=== PATIENT | male | born 1985 | race Caucasian/White ===

== ENCOUNTER 2025-06-27 15:49 | Emergency (ER) | payer BC, SELFPAY ==
[2025-06-27 16:08] VITALS: BP 118/81; PULSE 90; RESP 16; TEMP 36.4; O2SAT 98; BMI 25.8
--- NOTE | 2025-06-27 16:18 | CRLHL7_ITS ---
For Patients: As a result of the Century Cures Act, medical imaging exams and procedure reports are released immediately into your electronic medical record. You may view this report before your referring provider. If you have questions, please contact your health care provider. Indication: EPIGASTRIC PAIN Technique: CT abdomen/pelvis with IV contrast utilizing 89 mL Isovue 370 Comparison: None Findings: Lower thorax: Trace dependent and basilar atelectasis. Abdomen/pelvis: The liver, gallbladder and biliary system, spleen, adrenal glands, kidneys, ureters, bladder, seminal vesicles, and imaged external genitalia are unremarkable. Faint fat stranding of the pancreatic head/uncinate process, likely secondary to inflammatory changes of the 2nd portion of the duodenum where there is some abnormal mural thickening with questionable duodenal ulcer (series number 2, image [id number]). No bowel obstruction. The appendix is not discretely visualized; however, there are no inflammatory changes in the right lower quadrant to suggest acute appendicitis. There is no free air, free fluid, or abscess. No abdominopelvic lymphadenopathy. The vasculature is unremarkable. Soft tissue/musculoskeletal: Small fat containing umbilical hernia. The bones are unremarkable. Impression: 1. Inflammatory changes of the 2nd portion of the duodenum where there is some abnormal mural thickening with questionable duodenal ulcer. Consider further assessment with endoscopy. 2. There is no free air, free fluid, or abscess. 3. Faint fat stranding of the pancreatic head/uncinate process, likely secondary to inflammatory changes of the duodenum, and less likely acute pancreatitis; however, recommend correlation with serum lipase values. 4. Additional incidental findings as detailed above. Please note that all CT scans at this facility use dose modulation, iterative reconstruction, and/or weight-based dosing when appropriate to reduce radiation dose to as low as reasonably achievable. Dictated by Chucky Barry MD @ 06/27/2025 5:47:14 PM (Electronically Signed)
[2025-06-27 16:43] LABS: Lactate* 0.7 mmol/L (0.5-1.9)
--- NOTE | 2025-06-27 16:47 | ED.GENADULT ---
HPI - General Adult General Chief complaint: Abdominal Pain Stated complaint: stomach pain Time Seen by Provider: 06/27/25 16:04 Source: patient Mode of arrival: ambulatory Limitations: no limitations History of Present Illness HPI narrative: 39-year-old male presents today with diffuse abdominal pain that has been present for 3 days. Eating makes it worse. He denies any diarrhea or constipation. He denies any urinary symptoms such as increased frequency, urgency or dysuria. He denies fevers or chills. He does have mild nausea, no vomiting. Nothing makes it better. Past medical history is benign, he takes no medications. He denies any past surgeries. Patient does drink alcohol 3-4 times per week. Related Data Home Medications ?Medication ?Instructions ?Recorded ?Confirmed No Known Home Medications 06/27/25 06/27/25 Allergies Allergy/AdvReac Type Severity Reaction Status Date / Time No Known Drug Allergies Allergy Verified 06/27/25 17:09 Review of Systems Status of ROS: Reports: 10 or more systems reviewed and unremarkable except as noted in History and below Exam Narrative: Exam Narrative: Well-nourished well-developed patient in no acute distress. Alert and oriented. Answers questions appropriately. Mood and affect are appropriate. Thoughts are goal oriented and rational. No tangential or magical thinking noted. Patient speaks in full sentences without needing to catch his breath. HEENT: Normocephalic atraumatic. Pupils are equally round reactive to light. Extraocular muscles are intact. Conjunctivae are moist without any icterus noted. Moist mucous membranes. Posterior pharynx is normal. Cardiovascular: Heart is regular rate and rhythm S1 and S2 are present without any murmurs. Lungs: Clear to auscultation bilaterally no wheezes rhonchi or rales are appreciated. Patient takes deep breaths without any discomfort. Abdomen: Soft and nondistended with normal bowel sounds. Patient does have epigastric tenderness. Negative Garcia sign. No periumbilical tenderness. Extremities: Bilateral lower extremities are without edema. Skin: Well perfused without any obvious rashes. Const: Vital Signs, click to edit/add: Vital Signs - 24 hr 06/27/25 16:08 Temperature 97.6 F Pulse Rate [Pulse Oximeter] 90 Respiratory Rate 16 Blood Pressure [Ri ght Upper Arm] 118/81 Pulse Oximetry 98 Oxygen Delivery Me thod Room Air Course Course ED Course: Differential diagnoses includes gastritis, peptic ulcer disease, pancreatitis, colitis, cholecystitis, cholelithiasis. Patient was in the urgent care earlier today and had some labs done: His CBC does show an elevated white cell count of 14.19 with 78.8% neutrophils. Urinalysis showed trace ketones and trace protein. Chemistries were unremarkable aside from a creatinine that was elevated at 1.4. While in the ED we added a lactate which was normal. Lipase was slightly elevated at 401. LFTs were slightly elevated with an AST of 39 and ALT of 65, normal alkaline phosphatase and bilirubin levels. CT shows a duodenal ulcer. Slight inflammation around the pancreas. Vital Signs Vital signs: Initial Vital Signs Temperature 97.6 F 06/27/25 16:08 Temperature Source Temporal Artery Scan 06/27/25 16:08 Pulse Rate 90 06/27/25 16:08 Respiratory Rate 16 06/27/25 16:08 Blood Pressure 118/81 06/27/25 16:08 Blood Pressure Mean 93 06/27/25 16:08 Blood Pressure Position Sitting 06/27/25 16:08 Pulse Oximetry 98 06/27/25 16:08 Oxygen Delivery Method Room Air 06/27/25 16:08 Vital Signs Temperature 97.6 F 06/27/25 16:08 Pulse Rate 90 06/27/25 16:08 Respiratory Rate 16 06/27/25 16:08 Blood Pressure 118/81 06/27/25 16:08 Pulse Oximetry 98 06/27/25 16:08 Oxygen Delivery Method Room Air 06/27/25 16:08 Temperature 97.6 F 06/27/25 16:08 Pulse Rate 90 06/27/25 16:08 Respiratory Rate 16 06/27/25 16:08 Blood Pressure 118/81 06/27/25 16:08 Pulse Oximetry 98 06/27/25 16:08 Oxygen Delivery Method Room Air 06/27/25 16:08 Medications Administered Medications: Discontinued Medications Generic Name Dose Route Start Last Admin Trade Name Freq PRN Reason Stop Dose Admin Sodium Chloride 1,000 mls @ 1,000 mls/hr 06/27/25 16:30 06/27/25 17:35 0.9 % Sodium Chloride 1000 Ml IV 06/27/25 17:29 Infused .Q1H IRMA Infusion Medical Decision Making MDM Narrative Medical decision making narrative: 39-year-old male with signs and symptoms consistent with a duodenal ulceration. Will treat with omeprazole, discussed things to avoid, discussed warning signs to return to the ED. Discussed following up with primary care to test for H pylori and the need for an EGD. Lab Data Lab results reviewed: Yes I reviewed the patient's lab results Labs: Lab Results 06/27/25 Range/Units 16:37 Lactate 0.7 (0.5-1.9) mmol/L Total Bilirubin 1.0 (0.1-1.5) mg/dL Direct Bilirubin 0.3 (0.0-0.5) mg/dL AST 39 H (12-35) U/L ALT 65 H (4-50) U/L Alkaline Phosphatase 121 (40-150) U/L Total Protein 8.4 H (6.0-8.3) g/dL Albumin 4.8 (3.3-5.0) g/dL Lipase 401 H (23-300) U/L Imaging Data CT scan - abdomen: Attestation: I have reviewed the pertinent imaging results. Radiologist's impression: Technique: CT abdomen/pelvis with IV contrast utilizing 89 mL Isovue 370 Comparison: None Findings: Lower thorax: Trace dependent and basilar atelectasis. Abdomen/pelvis: The liver, gallbladder and biliary system, spleen, adrenal glands, kidneys, ureters, bladder, seminal vesicles, and imaged external genitalia are unremarkable. Faint fat stranding of the pancreatic head/uncinate process, likely secondary to inflammatory changes of the 2nd portion of the duodenum where there is some abnormal mural thickening with questionable duodenal ulcer (series number 2, image [id number]). No bowel obstruction. The appendix is not discretely visualized; however, there are no inflammatory changes in the right lower quadrant to suggest acute appendicitis. There is no free air, free fluid, or abscess. No abdominopelvic lymphadenopathy. The vasculature is unremarkable. Soft tissue/musculoskeletal: Small fat containing umbilical hernia. The bones are unremarkable. Impression: 1. Inflammatory changes of the 2nd portion of the duodenum where there is some abnormal mural thickening with questionable duodenal ulcer. Consider further assessment with endoscopy. 2. There is no free air, free fluid, or abscess. 3. Faint fat stranding of the pancreatic head/uncinate process, likely secondary to inflammatory changes of the duodenum, and less likely acute pancreatitis; however, recommend correlation with serum lipase values. 4. Additional incidental findings as detailed above. Discharge Plan Discharge Clinical Impression: Duodenal ulcer Patient Disposition: Home, Self-Care Condition: Stable Instructions: Peptic Ulcer (ED) Additional Instructions: Start daily Prilosec 20 mg. You can purchase this [id number]. You should take this for at least 4 weeks. Do not stop taking it without consulting with your primary care doctor. Avoid alcohol use. Avoid nonsteroidal anti-inflammatories such as ibuprofen, aspirin, Motrin, Aleve. You will need to follow-up with your primary care provider this week as you will need further testing to rule out H pylori, and infection that can cause duodenal ulcers. You will also need to have an EGD scheduled (camera to look inside the stomach), this can be done by your primary care doctor. If your pain worsens, you start vomiting or develops fevers-this can be signs of a medical emergency and you should return to the emergency room immediately. Prescriptions: No Action No Known Home Medications Follow Up/Referrals: Provider,Not a Local [Primary Care Provider, Family Practice] Stand Alone Forms: [employer] Info Instructions
[2025-06-27 17:01] LABS: Albumin* 4.8 g/dL (3.3-5.0)
[2025-06-27 17:04] LABS: Alanine Aminotransferase* 65 U/L (4-50); Alkaline Phosphatase* 121 U/L (40-150); Aspartate Amino Transferase* 39 U/L (12-35); Bilirubin Direct* 0.3 mg/dL (0.0-0.5); Bilirubin Total* 1.0 mg/dL (0.1-1.5); Total Protein* 8.4 g/dL (6.0-8.3)
== END 2025-06-27 18:19 | disposition home or self-care (01) ==
PROVIDERS: Emergency Provider Family Medicine
DX: K26.9 Duodenal ulcer, unspecified as acute or chronic, without hemorrhage or perforation (principal)
CPT/HCPCS: 36415; 74177; 80076; 83605; 83690; 99284; 99285; J7030; Q9967